=== PATIENT | female | born 1950 | race Caucasian/White ===

== ENCOUNTER → 2024-05-23 15:38 | Outpatient (REF) | payer OTHER, SELFPAY | LOC: HWRCS 15:38 | PROVIDERS: ATTENDING PHYSICIAN Family Medicine | DX: I38 Endocarditis, valve unspecified (principal) | CPT/HCPCS: 93306 ==

== ENCOUNTER 2024-07-14 06:26 | Day surgery (SDC) | payer OTHER, SELFPAY ==
[2024-07-04 09:34] VITALS: BMI 19.3
[2024-07-04 10:45] LABS: Hematocrit 42.9 % (37.0-47.0); Hemoglobin 13.9 g/dL (12.0-16.0); Mean Corp Hgb Conc. 32.4 g/dL (33.0-37.0); Mean Corpuscular Hgb 29.3 pg (27.0-31.0); Mean Corpuscular Volume 90.5 fL (81.0-99.0); Mean Platelet Volume 11.8 fL (7.4-10.4); Platelet Count 256 10^3/uL (130-400); Red Blood Cell Count 4.74 10^6/uL (4.20-5.40); White Blood Cell Count 6.6 10^3/uL (4.8-10.8)
[2024-07-04 10:52] LABS: Blood Urea Nitrogen 19 mg/dl (7-17); Calcium 9.5 mg/dl (8.4-10.2); Carbon Dioxide 31 mmol/L (22-30); Chloride 102 mmol/L (98-107); Estimated Creatinine Clearance 47 ml/min; Glucose 92 mg/dl (70-99); Potassium 4.2 mmol/L (3.5-5.1); Sodium 145 mmol/L (135-145); eGFR > 60.00
[2024-07-14] VITALS (10 sets, daily range): BP systolic 128–171; BP diastolic 66–90; BMI 19.3
[2024-07-14] MEDS: DUONEB 3 ML INH (12:12)
[2024-07-14] MEDS: TYLENOL 1000 MG PO (12:31)
[2024-07-14] MEDS: NORMOSOL-R/PLASMALYTE-A 1000 IV (12:32)
--- NOTE | 2024-07-14 12:50 | W.SUR.PREOP ---
Pre-Operative Surgical Note
-
I have examined this patient prior to the performance of the scheduled procedure.
The patient's condition is unchanged from the time of the current History and
Physical and the patient is able to undergo the scheduled procedure.
--- NOTE | 2024-07-14 14:37 | W.IMMPOSTOP ---
Addendum entered and electronically signed by Eliot Frank MD 07/14/24 14:45:
#[id number]
The assistance of Taya Cortés PA-C was required due to the complexity of the procedure. During the procedure Taya Cortés PA-C assisted with laparoscopic placement, managing the laparoscope for visualization during the procedure, and closure of the
surgical incision sites. I was present for the entirety of the operative procedure.
Original Note:
Surgical Immed Post Op Note
-
Primary Surgeon: Monika
Assisting Surgeon: Taya Cortés PA-C
Pre-op Diagnosis: Left inguinal hernia
Post-op Diagnosis: Left inguinal hernia�indirect
Procedure Performed: Laparoscopic TEP repair left inguinal hernia with mesh; 3D max large mid weight
Anesthesia Type: GETA +0.25% Marcaine
Specimen / Cultures: None
Estimated Blood Loss: 6 mL
Complications: None immediate
Operative Findings: Left indirect inguinal hernia. Direct and femoral space normal. Total extraperitoneal repair. 3D max large mid weight mesh, no tacks. No peritoneal entry with dissection.
[2024-07-14] MEDS: DILAUDID 0.25 MG IV (15:03)
[2024-07-14] MEDS: MOTRIN 600 MG PO (16:15)
== END 2024-07-14 17:25 | disposition home or self-care (01) ==
LOC: SDS 06:26
PROVIDERS: ATTENDING PHYSICIAN Surgery; FAMILY PHYSICIAN Family Medicine
DX: K40.90 Unilateral inguinal hernia, without obstruction or gangrene, not specified as recurrent (principal)
CPT/HCPCS: 49650; 36415; 80048; 85027; 93005; 94640; C1781

== ENCOUNTER → 2024-10-05 13:44 | Outpatient (REF) | payer OTHER, SELFPAY | LOC: WDC 13:44 | PROVIDERS: ATTENDING PHYSICIAN Family Medicine | DX: Z12.31 Encounter for screening mammogram for malignant neoplasm of breast (principal) | CPT/HCPCS: 77063; 77067 ==

== ENCOUNTER → 2025-05-18 14:32 | Outpatient (REF) | payer OTHER, SELFPAY | LOC: RAD 14:32 | PROVIDERS: ATTENDING PHYSICIAN Internal Medicine Critical Care Medicine; FAMILY PHYSICIAN Family Medicine | DX: J84.9 Interstitial pulmonary disease, unspecified (principal) | CPT/HCPCS: 71046 ==

== ENCOUNTER → 2025-07-18 09:00 | Outpatient (REF) | payer OTHER, SELFPAY | LOC: HWRCS 09:00 | PROVIDERS: ATTENDING PHYSICIAN Family Medicine; FAMILY PHYSICIAN Family Medicine | DX: I35.1 Nonrheumatic aortic (valve) insufficiency (principal) | CPT/HCPCS: 93306 ==

== ENCOUNTER → 2025-10-06 13:25 | Outpatient (REF) | payer OTHER, SELFPAY | LOC: WDC 13:25 | PROVIDERS: ATTENDING PHYSICIAN Family Medicine | DX: Z12.31 Encounter for screening mammogram for malignant neoplasm of breast (principal) | CPT/HCPCS: 77063; 77067 ==